=== PATIENT | male | born 1980 | race Caucasian/White ===

== ENCOUNTER 2024-12-25 16:01 | Emergency (ER) | payer OTHER, SELFPAY ==
[2024-12-25 16:12] LABS: Glucose - Point of Care 124 mg/dl (70-99)
[2024-12-25 16:16] VITALS: BMI 23.4
[2024-12-25 16:30] LABS: % Basophils 0.6 % (0-2); % Eosinophils 1.3 % (0-6); % Immature Granulocytes 0.3 % (0-0.5); % Lymphocytes 17.4 % (20.5-51.1); % Monocytes 6.9 % (1.7-9.3); % Neutrophils 73.5 % (42.2-75.2); Absolute Eosinophils 0.1 10^3/uL (0-0.7); Absolute Lymphocytes 1.2 10^3/uL (1.2-3.4); Absolute Monocytes 0.5 10^3/uL (0.1-0.6); Absolute Neutrophils 5.2 10^3/uL (1.4-6.5); Hematocrit 42.4 % (39.0-52.0); Hemoglobin 13.9 g/dL (13.0-18.0); Mean Corp Hgb Conc. 32.8 g/dL (33.0-37.0); Mean Corpuscular Hgb 28.8 pg (27.0-31.0); Mean Platelet Volume 10.9 fL (7.4-10.4); Nucleated Red Blood Cells % 0 % (-); Platelet Count 220 10^3/uL (130-400); Red Blood Cell Count 4.82 10^6/uL (4.70-6.10)
[2024-12-25 16:45] LABS: ALT (SGPT) 19 U/L (0-50); AST (SGOT) 23 U/L (17-59); Albumin 5.6 g/dl (3.5-5.0); Alkaline Phosphatase 73 U/L (38-126); Blood Urea Nitrogen 25 mg/dl (9-20); Carbon Dioxide 17 mmol/L (22-30); Chloride 99 mmol/L (98-107); Estimated Creatinine Clearance 89 ml/min; Glucose 132 mg/dl (70-99); Potassium 4.1 mmol/L (3.5-5.1); Sodium 140 mmol/L (135-145); Total Bilirubin 0.7 mg/dl (0.2-1.3); Total Protein 7.7 g/dl (6.3-8.2); eGFR > 60.00
[2024-12-25 17:00] VITALS: BP 117/79
--- NOTE | 2024-12-25 17:00 | ED.GENMED ---
History of Present Illness
General
Chief Complaint: Seizure
Source: patient, spouse and ambulance crew
Exam Limitations: none
Time Seen by Provider: 12/25/24 16:46
Nursing documentation reviewed up to this point in time: agreed with
History of Present Illness
History of Present Illness:
44-year-old male with a past medical history of glioblastoma who presents to the emergency department for evaluation after witnessed seizure. Patient has been receiving care for glioblastoma through [facility]. His neurosurgeon is
Dr. Rodriguez. He had resection of glioblastoma in November 2023; he did have a seizure prior to surgery this was his last known seizure. He was on Keppra for 8 months after surgery but has been off this for the past few months. He received
chemotherapy and radiation treatment which she has completed. He had been doing generally well but unfortunately follow-up imaging showed recurrence of glioblastoma and he is set for MRI for operative planning. Today he was with his and
friends when noted that he had a blank stare. She said she asked him if he was okay and he said 'not really' and proceeded to have witnessed generalized tonic-clonic seizure. Friend was nearby and was able to hold him and lowered him to the
ground. Total duration was 3 to 5 minutes per . He did bite his tongue. He had postictal period subsequently which was marked by significant agitation and confusion�this was consistent with postictal period from previous seizures. EMS called
to the scene and he received a total of 8 mg of intramuscular Versed for sedation and was transported to the emergency room. He now is back to his normal mental status and says he feels generally well. He has not been having any headache or neck
pain. Denies any weakness or numbness in extremities, speech issues, vision changes or any other acute complaints. He denies any alcohol use.
Past History
Past History
ED Past Medical History: None
ED Past Surgical History: None
Social History
Tobacco: Non-smoker
Alcohol: Occasional
Drug: None
Review of Systems
Review of Systems
All Other Systems: ROS reviewed and negative except as documented in HPI and ROS
Constitutional: Denies fever
Respiratory: Denies trouble breathing
Cardiac: Denies chest pain
ABD/GI: Denies abdominal pain, nausea or vomiting
Musculoskeletal: Denies neck pain or back pain
Neurological: Reports other (Seizure); Denies headache, weakness or numbness
Phy Exam
Physical Exam
Physical Exam:
General: Awake, alert; oriented x 3 and in no acute distress
Head: Normocephalic, atraumatic
Eyes: Conjunctiva normal, pupils equal round and reactive to light bilaterally, extraocular movements are intact
Throat: Airway intact, handling secretions; minor superficial left lateral tongue laceration
Neck: Trachea midline
Lungs: Clear to auscultation bilaterally, no wheezing, rales, rhonchi
Heart: Regular rate and rhythm, no murmurs, gallops, or rubs
Abd: Soft, non distended, nontender
Neuro: Cranial nerves intact 2 through 12, speech fluid no dysarthria or aphasia, motor and sensory intact in all extremities
Skin: no rash
Extremities: No edema in extremities, equal pulses in all extremities
Scores
Heart Failure Risk
Heart Failure Risk Score: Not Applicable
Heart Score for Chest Pain Patients
STEMI patient?: Not applicable
Withdrawal Assessment of Alcohol
Withdrawal Assessment Completed?: Not applicable
Course
Orders/Labs/Results
Orders:
Orders
12/25/24 16:12
Electrocardiogram (*1) Urgent
Reason for Study: Abdominal Pain
12/25/24 16:13
EKG- Treatment ONCE
12/25/24 16:20
Complete Blood Count/With Diff Urgent
Comprehensive Metabolic Panel Urgent
12/25/24 16:46
CT Head W/o Iv Contrast Urgent
Comment:
Reason For Exam: seizures, h/o glioblastoma
12/25/24 18:41
Levetiracetam Injectable [Keppra] 1,000 mg IV NOW STA
12/25/24 19:05
Ibuprofen [Motrin] 400 mg PO NOW STA
12/25/24 19:07
Ketorolac [Toradol] 15 mg IV NOW STA
12/25/24 19:11
Ondansetron Injectable [Zofran] 4 mg .ROUTE .STK-MED ONE
12/25/24 19:13
Ondansetron Injectable [Zofran] 4 mg IV NOW STA
12/25/24 20:03
Acetaminophen [Tylenol] 1,000 mg PO NOW STA
Dexamethasone Sod Phosphate [Decadron] 10 mg IV NOW STA
Diphenhydramine [Benadryl] 25 mg IV NOW STA
Metoclopramide [Reglan] 10 mg IV NOW STA
Abnormal Lab Results
12/25/24 12/25/24
16: 16:20
MCHC 32.8 L g/dL
(33.0-37.0)
MPV 10.9 H fL
(7.4-10.4)
Lymphocytes % 17.4 L %
(20.5-51.1)
Carbon Dioxide 17 L mmol/L
(22-30)
BUN 25 H mg/dl
(9-20)
Glucose 132 H mg/dl
(70-99)
Albumin 5.6 H g/dl
(3.5-5.0)
POC Glucose 124 H mg/dl
(70-99)
12/25/24 16:20
12/25/24 16:20
Vital Signs
Initial and Last Documented VS:
Initial Vital Signs
Temp Pulse Resp Pulse Ox
36.5 C 90 20 100
12/25/24 16:04 12/25/24 16:04 12/25/24 16:04 12/25/24 16:04
Last Documented Vital Signs
Temp Pulse Resp BP Pulse Ox
36.5 C 80 18 125/76 99
12/25/24 16:04 12/25/24 19:45 12/25/24 19:38 12/25/24 19:00 12/25/24 19:45
MDM/Problems Addressed
Differential Diagnosis Includes:
Seizure: Must evaluate for edema, bleeding related to known brain cancer
MDM/Problems Addressed:
44-year-old male presents after witnessed tonic-clonic seizure lasting a few minutes. Had significant agitation during postictal period requiring treatment with Versed from EMS�fortunately he is back to his baseline now. He has known history of
glioblastoma had a seizure related to this about a year ago underwent resection and chemoradiation; unfortunately had recurrence and is currently in planning stages for operative intervention. Follows with [facility] Dr. Rodriguez for
neurosurgery. Labs sent off including a CBC which was unremarkable, CMP shows metabolic acidosis likely related to seizure. Glucose normal. EKG shows sinus rhythm. Check CT head. Will discuss with patient's neurosurgery team. Reassess after
the above.
No additional seizure activity, patient at baseline has mild headache treated symptomatically. CT head no acute pathology. Observed for 4 hours here is stable for discharge. [employer] form filed patient aware that he should not drive. Will
follow-up with his neurosurgery team. He was given Keppra here will start on p.o. Keppra at home�discussed with on-call for patient's neurosurgery team at [facility] agreed with this plan. All questions answered.
Chronic conditions affecting care:
Glioblastoma
*Radiology
Radiology exam reviewed: radiology read reviewed
*Pulse Oximetry
Patient hypoxic: no
*EKG
Interpreted by ED Provider?: Yes
Heart Rate: 87
Rate: normal
Rhythm: sinus
[place]: normal axis
Interval: normal interval
QRS Pattern: normal QRS
Ischemia: no ischemia
*Critical Care Note
Total Time (30-74mins, 75-104mins- exclusive of procedures): Not Applicable
Data Reviewed
Source: patient, spouse and ambulance crew
Patient Management
Discussion with other providers: [employer] (Discussed with neurosurgeon at [facility])
ED Attending Note
-
Portions of this chart may have been created with voice recognition software.� Occasional wrong word or��sound alike� substitutions may have occurred due to the inherent limitations of voice recognition software.
Discharge Plan
Departure
Patient with high blood pressure during this ER visit?: No
Discharge Problem:
Seizure
Instructions: Seizures, Adult (DC)
Prescriptions:
New
levetiracetam [Keppra] 500 mg tablet
500 mg PO BID Qty: 60 0RF
No Action
hydrocodone-acetaminophen 1 TABLET tablet
1 - 2 tab PO Q4HPRN PRN (Reason: pain) Qty: 12 0RF
Referrals:
THOMAS MEHTA [Family Provider] -
Activity Restrictions/Additional Instructions:
You should follow-up with your neurosurgeon first thing Friday morning to be seen following your seizure.
Interventions
Interventions:
*Risk Screen - Suicide Last Done: 12/25/24 16:04
*General Assessment Last Done: 12/25/24 16:04
*Neglect/Abuse Screening Last Done: 12/25/24 16:04
*ED COVID-19 Vaccine History Last Done: 12/25/24 16:30
ED- Cardiac Assessment Last Done: 12/25/24 16:30
ED- Neurological Assessment Last Done: 12/25/24 16:30
ED- Pulmonary Assessment Last Done: 12/25/24 16:30
Discharge Date and Time
Print Language: SOMALI
[2024-12-25 17:01] VITALS: BP 117/79
[2024-12-25 18:00] VITALS: BP 125/71
[2024-12-25 19:00] VITALS: BP 125/76
[2024-12-25] MEDS: ZOFRAN 4 MG IV (19:15)
[2024-12-25] MEDS: TORADOL 15 MG IV (19:16)
[2024-12-25] MEDS: KEPPRA 1000 MG IV (19:16)
[2024-12-25 20:00] VITALS: BP 118/67
[2024-12-25] MEDS: BENADRYL 25 MG IV (20:08)
[2024-12-25] MEDS: DECADRON 10 MG IV (20:08)
[2024-12-25] MEDS: TYLENOL 1000 MG PO (20:08)
[2024-12-25] MEDS: REGLAN 10 MG IV (20:08)
[2024-12-25 21:01] VITALS: BP 124/75
== END 2024-12-25 21:35 | disposition home or self-care (01) ==
LOC: EMR 16:01
PROVIDERS: EMERGENCY PHYSICIAN Emergency Medicine; FAMILY PHYSICIAN Internal Medicine Hematology & Oncology
DX: R56.9 Unspecified convulsions (principal); C71.9 Malignant neoplasm of brain, unspecified; E87.20 Acidosis, unspecified; Z92.21 Personal history of antineoplastic chemotherapy; Z92.3 Personal history of irradiation
CPT/HCPCS: 99284; 96374; 96375; 96376; 70450; 80053; 82962; 85025; 93005

== ENCOUNTER 2025-04-18 15:15 | Outpatient (RCR) | payer OTHER, SELFPAY | END 2025-04-18 23:59 | disposition home or self-care (01) | LOC: RPT 15:15 | PROVIDERS: ATTENDING PHYSICIAN Internal Medicine Hematology & Oncology | DX: Z73.6 Limitation of activities due to disability (principal); C71.9 Malignant neoplasm of brain, unspecified | CPT/HCPCS: 97110; 97112; 97163; 97530 ==

== ENCOUNTER 2025-05-18 13:10 | Outpatient (RCR) | payer OTHER, SELFPAY | END 2025-05-18 23:59 | disposition home or self-care (01) | LOC: RPT 13:10 | PROVIDERS: ATTENDING PHYSICIAN Internal Medicine Hematology & Oncology | DX: C71.9 Malignant neoplasm of brain, unspecified (principal); Z73.6 Limitation of activities due to disability | CPT/HCPCS: 97110; 97112; 97530 ==

== ENCOUNTER 2025-06-13 17:16 | Outpatient (RCR) | payer OTHER, SELFPAY | END 2025-06-13 23:59 | disposition home or self-care (01) | LOC: RPT 17:16 | PROVIDERS: ATTENDING PHYSICIAN Internal Medicine Hematology & Oncology | DX: C71.9 Malignant neoplasm of brain, unspecified (principal); Z73.6 Limitation of activities due to disability | CPT/HCPCS: 97110; 97112; 97116; 97530 ==

== ENCOUNTER 2025-07-13 13:26 | Outpatient (RCR) | payer OTHER, SELFPAY | END 2025-07-13 23:59 | disposition home or self-care (01) | LOC: RPT 13:26 | PROVIDERS: ATTENDING PHYSICIAN Internal Medicine Hematology & Oncology | DX: C71.9 Malignant neoplasm of brain, unspecified (principal); Z73.6 Limitation of activities due to disability; R26.2 Difficulty in walking, not elsewhere classified; M62.81 Muscle weakness (generalized); R26.89 Other abnormalities of gait and mobility; Z98.890 Other specified postprocedural states | CPT/HCPCS: 97110; 97112; 97530 ==

== ENCOUNTER 2025-07-20 13:30 | Outpatient (RCR) | payer OTHER, SELFPAY | END 2025-07-20 23:59 | disposition home or self-care (01) | LOC: RPT 13:30 | PROVIDERS: ATTENDING PHYSICIAN Internal Medicine Hematology & Oncology | DX: C71.9 Malignant neoplasm of brain, unspecified (principal); M62.81 Muscle weakness (generalized); R26.89 Other abnormalities of gait and mobility; R26.2 Difficulty in walking, not elsewhere classified; Z98.890 Other specified postprocedural states; Z73.6 Limitation of activities due to disability | CPT/HCPCS: 97110; 97112 ==

== ENCOUNTER → 2025-08-20 11:45 | Outpatient (REF) | payer OTHER, SELFPAY | LOC: RAD 11:45 | PROVIDERS: ATTENDING PHYSICIAN Internal Medicine Hematology & Oncology | DX: C71.2 Malignant neoplasm of temporal lobe (principal); E86.0 Dehydration; R05.1 Acute cough; J18.1 Lobar pneumonia, unspecified organism; R26.81 Unsteadiness on feet; R26.89 Other abnormalities of gait and mobility; M15.0 Primary generalized (osteo)arthritis; R60.0 Localized edema | CPT/HCPCS: 93971 ==

== ENCOUNTER → 2025-09-05 11:15 | Outpatient (REF) | payer OTHER, SELFPAY | LOC: RAD 11:15 | PROVIDERS: ATTENDING PHYSICIAN Internal Medicine Hematology & Oncology | DX: C71.2 Malignant neoplasm of temporal lobe (principal); J18.1 Lobar pneumonia, unspecified organism; R26.81 Unsteadiness on feet; M15.0 Primary generalized (osteo)arthritis; R60.0 Localized edema; I82.409 Acute embolism and thrombosis of unspecified deep veins of unspecified lower extremity | CPT/HCPCS: 93971 ==